=== PATIENT | female | born 1975 | race Caucasian/White ===

== ENCOUNTER 2019-12-20 09:35 | Emergency (ER) | payer OTHER, SELFPAY ==
[2019-12-20] VITALS (7 sets, daily range): BP systolic 121–137; BP diastolic 78–112; PULSE 63–78; RESP 14–20; TEMP 37; O2SAT 99–100
--- NOTE | ~2019-12-20 | CT_ITS ---
EXAMINATION: CT brain wo con INDICATION: Altered mental status, weakness, lightheadedness COMPARISON: None TECHNIQUE: Standard unenhanced head CT. The dose-length product (DLP) was 605.33 mGy-cm. The mA was a djusted according to patient size. Iterative reconstruction technique was employed. FINDINGS: There is no intracranial hemorrhage, acute infarction, or abnormal mass lesion. The ventric les are normal. There is no abnormal mass effect or midline shift. The ivy-white matter differentiat ion is normal. The basal cisterns are patent. The orbits are normal. The paranasal sinuses, mastoids and calvarium are normal. IMPRESSION: 1. No acute intracranial abnormality. Reviewed, dictated and finalized at location A.
--- NOTE | ~2019-12-20 | XR_ITS ---
EXAMINATION: XR chest 1V DATE: 12/20/2019 10:31 INDICATION: Altered mental status. TECHNIQUE: A single frontal view of the chest was obtained. COMPARISON: None. FINDINGS: The lung volumes are small. There is no pneumonia, pleural effusion, or pneumothorax. The h eart size is normal. IMPRESSION: 1. Small lung volumes. Reviewed, dictated and finalized at location A. IMPRESSION: 1. Small lung volumes.
--- NOTE | 2019-12-20 09:40 | ECG_ITS ---
Measurements Intervals [place] Rate: 78 P: 29 OK: 152 QRS: 11 QRSD: 89 T: 23 QT: 393 QTc: 449 Interpretive Statements SINUS RHYTHM INCOMPLETE RIGHT BUNDLE BRANCH BLOCK BORDERLINE ECG Electronically Signed On 12-20-2019 10:48:05 CDT by Harsh Man D.O.
--- NOTE | 2019-12-20 10:03 | ED.GENADULT ---
HPI - General Adult General Chief complaint: Weakness Stated complaint: shaking spells Time Seen by Provider: 12/20/19 09:37 History of Present Illness HPI narrative: Patient presents emergency department from home for weakness. Patient states she has been having episodes over the past month where she will feel shaky and then have a near syncopal episode. She states she is never fully passed out but she states at times she does not fully remember what happens during these events. She states that following these events she becomes very sleepy she denies having any work-up for these events she denies any vision changes chest pain shortness of breath abdominal nausea vomiting or any other symptoms. Patient denies any previous history of seizures Related Data Home Medications Medication Instructions Recorded Confirmed No Home Medications 12/20/19 12/20/19 Allergies Allergy/AdvReac Type Severity Reaction Status Date / Time No Known Allergies Allergy Verified 12/20/19 10:38 Review of Systems Review of Systems: Narrative: Gen.: Denies fevers or chills Eyes: Denies eye pain or visual change ENT: Denies congestion Respiratory: Denies shortness of breath or cough CV: Denies chest pain or palpitations reports near syncopal episode GI: Denies abdominal pain nausea, emesis or diarrhea denies burning, urgency, frequency or hematuria Musculoskeletal: Denies back pain or muscle pain Neuro: See HPI Skin: Denies rash Except as documented, all other systems reviewed and negative [facility] Past Medical History Medical History (Updated 12/20/19 @ 12:08 by Darius Louise DO) Fibromyalgia Lupus Social History Social History (Updated 12/20/19 @ 10:06 by Darius Louise DO) Smoking status: Never smoker Exam Narrative: Exam Narrative: APPEARANCE: No acute distress, nontoxic, resting in bed HEENT: Normocephalic, atraumatic, OMM, TMs clear bilaterally EYES: PERRL, EOMI NECK: Supple, nontender, full range of motion without pain, no meningismus RESPIRATORY: No respiratory distress, clear to auscultation bilaterally with no rhonchi wheezing or rales CARDIOVASCULAR: RRR s murmur ABDOMINAL: Soft, nontender, nondistended MUSCULOSKELETAL: Moves all extremities. No clubbing, cyanosis or edema. NEURO: A and O ?3, following commands, speech normal, cranial nerves II through XII grossly intact,muscle strength 5 out of 5 bilateral upper and lower extremities SKIN:: Warm, dry. Normal Color PSYCHIATRIC: Normal affect/mood Course Course Emergency Course: Discussed with Dr. Perez from neurology discussed presentation work-up agrees plan for follow-up as an outpatient with EEG as outpatient Discussed with patient results of workup and diagnosis. Discussed need for follow-up with primary care, proper use of medication, and reasons to return to the emergency department. Patient understands and agrees to current treatment plan Vital Signs Vital signs: Vital Signs Temperature 98.6 F 12/20/19 09:41 Pulse Rate 78 12/20/19 09:41 Respiratory Rate 14 12/20/19 09:41 Blood Pressure 137/88 12/20/19 09:41 Pulse Oximetry 100 12/20/19 09:41 Temperature 98.6 F 12/20/19 09:41 Pulse Rate 67 12/20/19 11:30 Respiratory Rate 16 12/20/19 11:30 Blood Pressure 121/85 12/20/19 11:30 Pulse Oximetry 99 12/20/19 11:30 Medical Decision Making MDM Narrative Medical decision making narrative: Patient's episode of near-syncope is not felt due to high risk cause. Near-syncopal episode was brief and patient is now back to normal mental status. EKG is reviewed without high-risk changes for syncope: There are no signs of prolonged QT or Brugada syndrome. Patient ambulates with a steady gait and is felt to be a reasonable candidate for further evaluation as an outpatient management. With patient's episodes of near syncopal followed by feeling sleepy mild shaking I suspect partial seizure discussed this with the patient and will have
[2019-12-20 10:07] LABS: Basophils Percent Auto 0.4 % (0.2-1.2); Eosinophils Percent Auto 0.6 % (0-4.4); Hematocrit 43.5 % (37.0-47.0); Hemoglobin 14.5 g/dL (12.0-15.0); Immature Granulocyte Absolute 0.01 K/mm3 (0.00-0.031); Immature Granulocyte Percent A 0.2 % (0-0.5); Lymphocytes Absolute Auto 1.45 K/mm3 (0.9-3.2); Lymphocytes Percent Auto 28.8 % (18.3-44.2); Mean Corpuscular HGB Conc 33.3 g/dl (32-36); Mean Corpuscular Hemoglobin 30.7 pg (26-34); Mean Platelet Volume 10.2 fl (7.4-10.4); Monocytes Absolute Auto 0.4 K/mm3 (0.1-0.6); Neutrophils Absolute Auto 3.1 K/mm3 (1.3-6.7); Platelet Count Result 230 k/mm3 (150-375); Red Blood Count 4.73 M/mm3 (4.2-5.4)
[2019-12-20 10:16] LABS: INR 0.9; Prothrombin Time 12.2 Seconds (11.1-14.7)
[2019-12-20 10:17] LABS: Partial Thromboplastin Time 29.1 SECONDS (22.3-36.8)
[2019-12-20] MEDS: SODIUM CHLORIDE 0.9% IV 1,000 ML 999 ML IV CONT (10:17)
[2019-12-20 10:19] LABS: Alanine Aminotransferase 26 U/L (4-35); Albumin Level 4.9 g/dL (3.5-5.1); Alkaline Phosphatase 93 U/L (38-126); Aspartate Amino Transferase 34 U/L (14-36); Bilirubin,Total 0.4 mg/dL (0.2-1.3); Blood Urea Nitrogen 12 mg/dL (7-17); Carbon Dioxide 27 mmol/L (22-30); Chloride 103 mmol/L (98-107); Estimated Glomerular Filt Rate > 60; Glucose 99 mg/dL (65-105); Potassium 4.1 mmol/L (3.4-5.0); Sodium 137 mmol/L (137-145)
[2019-12-20 10:31] LABS: Troponin I < 0.012 ng/mL (0.000-0.034)
[2019-12-20 11:07] LABS: Add Urine Microscopic? YES; Appearance Urine Clear (Clear); Bacteria Urine Trace /hpf; Bilirubin Urine Negative (Negative); Blood Urine Negative (Negative); Color Urine Yellow (Yellow); Glucose Urine UA Negative (Negative); Ketones Urine Negative (Negative); Leukocyte Esterase Ur Negative LEU/UL (Negative); Mucus Urine Rare /lpf; Nitrate Urine Negative (Negative); Protein Urine Negative (Negative); RBC Urine 0-2 /hpf (0-2); Squamous Epithelial Cell Urine Few /hpf (Few); Urobilinogen Urine Negative mg/dL (<2.0); WBC Urine 0-3 /hpf
[2019-12-20 11:50] LABS: D Dimer 0.27 ug/mL (<0.48)
== END 2019-12-20 12:26 | disposition home or self-care (01) ==
PROVIDERS: Emergency Provider Emergency Medicine
DX: R55 Syncope and collapse (principal); M79.7 Fibromyalgia; I45.10 Unspecified right bundle-branch block
CPT/HCPCS: 36415; 70450; 71045; 80053; 81001; 84484; 85025; 85380; 85610; 85730; 93005; 99284; J7030

== ENCOUNTER 2020-01-06 06:43 | Outpatient (CLI) | payer OTHER, SELFPAY ==
--- NOTE | 2020-01-06 | ECHO_ITS ---
Patient Info Name: Cheri Ramirez Age: 44 years : 1975 Gender: Female Ht: 59 in Wt: 170 lbs BSA: 1.83 m2 HR: 64 bpm BP: 126 / 93 mmHg Heart Rhythm: Sinus Rhythm Technical Quality: Good Exam Date: 01/06/2020 9:09 AM Exam Location: [facility] Pulmonary Patient Status: Outpatient Admit Date: 01/06/2020 Staff Ordering Physician: Giles Perez MD Proofer Apprentice: Madelyn Chicas RDCS Attending Provider: Giles Perez MD Exam Type: CA echo doppler color flow Study Info Indications - arrhythmias Complete two-dimensional, color flow and Doppler transthoracic echocardiogram is performed. Summary 1. Left ventricular systolic function is normal, estimated at >70%. 2. There is no increased left ventricular wall thickness. 3. The left ventricular diastolic function is normal. 4. No pulmonary hypertension, estimated pulmonary arterial systolic pressure is 22 mmHg. 5. There is trace tricuspid valve regurgitation. Left Ventricle Left ventricular chamber dimension is normal. Left ventricular systolic function is normal, estimated at >70%. There is no increased left ventricular wall thickness. The left ventricular diastolic function is normal. Right Ventricle Right ventricular chamber dimension is normal. Right ventricular systolic function is normal. Left Atria Left atrial chamber dimension is normal. Right Atria Right atrial chamber dimension is normal. Aortic Valve The aortic valve is probable trileaflet. There is no aortic valve stenosis. There is no aortic valve regurgitation. Pulmonic Valve The pulmonic valve is normal. There is trace pulmonic regurgitation. Mitral Valve The mitral valve has normal leaflets. There is no mitral valve regurgitation. Tricuspid Valve The tricuspid valve leaflets are normal. There is trace tricuspid valve regurgitation. No pulmonary hypertension, estimated pulmonary arterial systolic pressure is 22 mmHg. Pericardium/Pleural The pericardium appears normal. There is trivial pericardial effusion. Inferior Vena Cava Normal inferior vena cava with >50% collapse upon inspiration consistent with normal right atrial pressure, 5 mmHg. Aorta The aortic root size at the sinus of Valsalva is normal. Left Ventricular Outflow Tract Name Value Normal LVOT 2D LVOT Diameter 2.0 cm LVOT Doppler LVOT Peak Gradient 4 mmHg LVOT Mean Gradient 2 mmHg LVOT VTI 20 cm LVOT VTI/AV VTI Ratio 0.7 LVOT Stroke Volume 60 ml LVOT CO 13.1 l/min LVOT CI 7.2 l/min/m2 Pulmonic Valve Name Value Normal PV Doppler PV Peak Gradient 4 mmHg PV Regurgitation Doppler
--- NOTE | 2020-01-06 07:30 | NEURO_ITS ---
TEST: ELECTROENCEPHALOGRAM DIAGNOSIS: SEIZURE PATIENT NUMBER: [id number] EEG NUMBER: [id number] RECORDING DATE: 01/06/20 CONDITION OF RECORDING: Awake, drowsy and sleep EEG DESCRIPTION: Basic resting occipital frequency consists of moderate amount of poorly organized low voltage 8-10hz alpha mixed with low voltage 15-18hz beta. During drowsiness low voltage beta activity is seen diffusely mixed with waxing and waning posterior alpha rhythms and intermittent 6-7hz theta. Bilateral symmetrical sleep activity is seen during sleep. Photic stimulation produced normal drive. Hyperventilation produced normal and symmetrical build- up. Nonparoxysmal. Nonfocal. Nonlateralizing. IMPRESSION: Normal record MTDD
--- NOTE | 2020-01-08 16:32 | WPDHOLTEREM ---
Holter/Event Monitor Holter/Event Monitor Date of procedure: 01/08/20 Procedure Type: 24 hour Holter monitor Diagnosis: arrhythmias Indications: arrhythmias Image/Tracing Quality: good Finding: this is a 24 hour Holter monitor in which the underlying rhythm was sinus with an average heart rate of 70 beats per minute minimum 43 beats per minute occurring at 1:19 a.m. and a max of 118 beats per minute occurring at 10:39 a.m.. There were 5 isolated premature ventricular contractions noted throughout the study. There were 2 isolated premature atrial contractions noted throughout the study. There were no prolonged pauses and or high-grade AV blocks. The longest RR interval was 1.7 seconds occurring at 1:48 a.m.. OR and QRS duration were within normal limits throughout the study. There was no atrial fibrillation, atrial flutter, prolonged pauses and or high-grade AV blocks noted. There were no symptoms return to conjunction with this study. Conclusion: Unremarkable Holter monitor with underlying sinus rhythm and rare PVCs and PACs. No symptoms documented.
== END 2020-01-06 06:44 | disposition home or self-care (01) ==
PROVIDERS: Visit Provider Psychiatry & Neurology Neurology
DX: I42.9 Cardiomyopathy, unspecified (principal); R56.9 Unspecified convulsions; I49.9 Cardiac arrhythmia, unspecified
CPT/HCPCS: 93225; 93226; 93306; 95816

== ENCOUNTER 2020-12-24 11:59 | Outpatient (CLI) | payer OTHER, SELFPAY ==
--- NOTE | ~2020-12-24 | XR_ITS ---
EXAMINATION: XR fl inj hip RT for MR/CT DATE: 12/24/2020 13:00 TECHNIQUE: A time-out was performed to verify the patient's name, date of , and procedure to b e performed. The procedure including the risks, benefits, and alternatives was discussed with the pat ient. Risks discussed included bleeding and infection. The patient understood the risks and agreed to proceed. The skin overlying the right hip joint was prepped and draped in usual sterile fashion. A nesthetic was administered with 1% lidocaine subcutaneously. A 22 G needle was advanced under fluoro scopic guidance into the joint. Injection of 1 mL of Omnipaque 240 confirmed intra-articular positio n of the needle. Subsequently, injectate consisting of 12 mL of 2:1:1 mixture of sterile saline:Omni paque 240:1% lidocaine mixed 200:1 with 529 mg/mL Multihance gadolinium contrast was injected with in tra-articular administration confirmed with intermittent fluoroscopy. The needle was removed and the entry site was cleaned and dressed. There were no immediate complications. Fluoroscopy exposure time was 0.1 minutes. The total number of images was 7. FINDINGS: Real-time fluoroscopy demonstrates the needle and contrast in the right hip joint. There di d appear to be some extra-articular contrast extravasation occurring at the site of the needle entry during the course of the injection. IMPRESSION: 1. Right hip joint injection of dilute gadolinium contrast mixed for subsequent MRI arthrogram which will be dictated separately. Reviewed, dictated and finalized at location A.
--- NOTE | ~2020-12-24 | MR_ITS ---
EXAMINATION: MR hip RT w con DATE: 12/24/2020 13:50 INDICATION: Right hip pain TECHNIQUE: Magnetic resonance imaging (MRI) of the right hip was performed without intravenous contr ast. Sequences included full-field axial PD-weighted FS FSE and T1-weighted FSE, coronal of the pelvi s with PD-weighted FS FSE, small field of view of the affected hip with axial PD-weighted FS FSE, sa gittal PD-weighted FS FSE and coronal PD weighted FS FSE. Additional radial T1-weighted FGR oriented orthogonal to the acetabular rim were obtained for evaluation of the labrum. COMPARISON: None FINDINGS: Bones/labrum/cartilage: Alignment is normal. No fracture, avascular necrosis or pathologic marrow replacing process. Small c ontrast filled cleft consistent with partial thickness tear including delamination at the chondral la bral junction at the base of the 12:00-11:00 position of the posterior superior right acetabular labr um. There is mild partial-thickness cartilage loss with smooth chondral surface most prominent at the posterior and posterior superior aspect of the joint space. Fluid: Symmetric physiologic amount of fluid within both hip joints. Soft tissues: Normal and symmetric muscle bulk and signal in the pelvis and visualized proximal thighs. The iliopso as, gluteal and proximal hamstring tendons are normal. The uterus is not identified and has likely be en surgically resected. Limited evaluation of visceral organs of the pelvis is otherwise unremarkable . No pathologically enlarged pelvic/inguinal lymphadenopathy. IMPRESSION: 1. Mild right hip osteoarthritis with small tear at the 12:00 to 11:00 position of the posterior supe rior right acetabular labrum. Reviewed, dictated and finalized at location A. IMPRESSION: 1. Mild right hip osteoarthritis with small tear at the 12:00 to 11:00 position of the posterior superior right acetabular labrum.
== END 2020-12-24 12:00 ==
PROVIDERS: Visit Provider Internal Medicine
DX: M76.31 Iliotibial band syndrome, right leg (principal); M16.11 Unilateral primary osteoarthritis, right hip
CPT/HCPCS: 20610; 73722; 77002; A9577; Q9966

== ENCOUNTER 2021-01-08 08:38 | Outpatient (CLI) | payer OTHER, SELFPAY ==
--- NOTE | ~2021-01-08 | XR_ITS ---
EXAMINATION: XR lg joint inject/asp w image DATE: 01/08/2021 09:19 INDICATION: Right hip pain. TECHNIQUE: A time-out was performed to verify the patient's name, date of , and procedure to b e performed. The procedure including the risks, benefits, and alternatives was discussed with the pat ient. Risks discussed included bleeding and infection. The patient understood the risks and agreed to proceed. The skin overlying the right hip joint was prepped and draped in usual sterile fashion. A nesthetic was administered with 1% lidocaine subcutaneously. A 22 G needle was advanced under fluoro scopic guidance into the joint. Injection of 1 mL of Omnipaque 240 confirmed intra-articular positio n of the needle. Subsequently, injectate consisting of 3 mL 1% lidocaine and 1 mL 80 mg/mL Depo-Medr ol was instilled. The needle was removed and the entry site was cleaned and dressed. There were no immediate complications. Fluoroscopy exposure time was 0.1 minutes. The total number of images was 2. FINDINGS: Real-time fluoroscopy demonstrates the needle in the right hip joint. Patient's pain prior to procedure:8/10. Patient's pain following the procedure: 0/10. IMPRESSION: 1. Fluoroscopy guided right hip joint injection of local anesthetic and steroid with decrease in the patient's presenting pain. Reviewed, dictated and finalized at location A.
== END 2021-01-08 08:39 | disposition home or self-care (01) ==
LOC: ANHIMG 08:39
DX: M25.551 Pain in right hip (principal)
CPT/HCPCS: 20610; 77002; J1040; Q9966

== ENCOUNTER 2021-03-07 04:18 | Emergency (ER) | payer OTHER, SELFPAY ==
[2021-03-07 04:27] VITALS: BP 121/93; PULSE 73; RESP 20; TEMP 36.6; O2SAT 98
--- NOTE | 2021-03-07 04:41 | ED.GENADULT ---
HPI - General Adult General Chief complaint: Allergic Reaction Stated complaint: rash on her whole body Time Seen by Provider: 03/07/21 04:25 Source: RN notes reviewed History of Present Illness HPI narrative: Patient presents to emergency department from home for rash. Patient states she has had a erythematous rash across her face upper and lower extremities chest abdomen and back since March 03 states that she came in this evening because it woke her up from sleep and she was itching states has been taking Tylenol for the rash denies any swelling of the lips or tongue denies any shortness of breath. States she was recently started on lamotrigine at the end of January she denies any fevers or chills chest pain or any other symptoms Related Data Allergies Allergy/AdvReac Type Severity Reaction Status Date / Time No Known Allergies Allergy Verified 12/20/19 10:38 Review of Systems Review of Systems: Gen.: Denies fevers or chills Eyes: Denies eye pain or visual change ENT: Denies swelling of lips or tongue Respiratory: Denies shortness of breath or cough CV: Denies chest pain GI: Denies abdominal pain nausea, emesis Musculoskeletal: Denies back pain or muscle pain Neuro: Denies numbness, tingling, weakness or focal weakness Skin: See HPI Except as documented, all other systems reviewed and negative PMFSH Past Medical History Medical History Fibromyalgia Lupus Social History Social History Smoking status: Never smoker Exam Narrative: APPEARANCE: No acute distress, nontoxic, resting in bed EYES: EOMI HEENT: Normocephalic, atraumatic, OMM no swelling of the lips or tongue airway patent tolerating own secretions voice normal RESPIRATORY: No respiratory distress Clear to auscultation bilaterally with no rhonchi wheezing or rales. CARDIOVASCULAR: Regular rate and rhythm without murmurs rubs or gallops. ABDOMINAL: Soft, nontender, nondistended, no rebound or guarding MUSCULOSKELETAl: Moves all extremities. No clubbing, cyanosis or edema. NEURO: Awake and alert. Following commands, speech normal, no focal deficits SKIN:: Warm, dry. There is a erythematous rash over the bilateral upper and lower extremities chest abdomen back and face there is no open wounds there is no vesicles present there is no intraoral lesions no target lesions PSYCHIATRIC: Normal affect/mood, Course Course Emergency Course: Patient's rash is improved in the ED patient states that itching has improved Called and discussed Dr. Perez presentation work-up at this time will stop lamotrigine agrees with plan for discharge I discussed patient's minimally elevated liver enzymes as well as white blood cell count and platelets and will follow as an outpatient Discussed with patient results of workup and diagnosis. Discussed need for follow-up with primary care, proper use of medication, and reasons to return to the emergency department. Patient understands and agrees to current treatment plan Vital Signs Vital signs: Vital Signs Temperature 98 F 03/07/21 04:27 Pulse Rate 73 03/07/21 04:27 Respiratory Rate 20 03/07/21 04:27 Blood Pressure 121/93 H 03/07/21 04:27 Pulse Oximetry 98 03/07/21 04:27 Temperature 98 F 03/07/21 04:27 Pulse Rate 67 03/07/21 06:17 Respiratory Rate 16 03/07/21 06:17 Blood Pressure 121/62 03/07/21 06:17 Pulse Oximetry 100 03/07/21 06:17 Medical Decision Making [facility] Narrative Medical decision making narrative: Patient started on lamotrigine end of January presents for rash for the past 4 days. There is no target lesions there is no intraoral lesions there is no vesicles no signs of Holly-Nick syndromes or toxic epidermal necrosis. Patient did have baseline blood work done she does have minimal elevation in her liver LFTs she had minimal decrease in white blood cell count platelet count there
[2021-03-07] MEDS: FAMOTIDINE 20 MG TABLET PO (04:51)
[2021-03-07] MEDS: predniSONE 20 MG TABLET 60 MG PO (04:51)
[2021-03-07] MEDS: diphenhydrAMINE HCl CAP 25 MG CAPSULE PO (04:51)
[2021-03-07 05:27] LABS: Basophils Percent Auto 0.3 % (0.2-1.2); Eosinophils Absolute Auto 0.1 K/mm3 (0-0.3); Eosinophils Percent Auto 3.8 % (0-4.4); Hematocrit 44.6 % (37.0-47.0); Hemoglobin 14.7 g/dL (12.0-15.0); Immature Granulocyte Absolute 0.01 K/mm3 (0.00-0.031); Immature Granulocyte Percent A 0.3 % (0-0.5); Immature Platelet Fraction Pct 6.9 % (0.9-11.2); Lymphocytes Absolute Auto 0.85 K/mm3 (0.9-3.2); Lymphocytes Percent Auto 29.2 % (18.3-44.2); Mean Corpuscular Hemoglobin 31.3 pg (26-34); Mean Corpuscular Volume 94.9 fl (80-100); Mean Platelet Volume 10.2 fl (7.4-10.4); Monocytes Absolute Auto 0.2 K/mm3 (0.1-0.6); Monocytes Percent Auto 6.2 % (2.6-8.5); Neutrophils Absolute Auto 1.8 K/mm3 (1.3-6.7); Neutrophils Percent Auto 60.2 % (45.5-73.1); Platelet Count Result 140 k/mm3 (150-375); Red Cell Distribution Width 11.9 % (11.5-14.5); White Blood Count 2.9 K/mm3 (4.5-10.0)
[2021-03-07 05:36] LABS: Alanine Aminotransferase 66 U/L (4-35); Albumin Level 4.2 g/dL (3.5-5.1); Alkaline Phosphatase 106 U/L (38-126); Anion Gap 7 mmol/L (8-16); Aspartate Amino Transferase 65 U/L (14-36); Bilirubin,Total 0.3 mg/dL (0.2-1.3); Blood Urea Nitrogen 9 mg/dL (7-17); Calcium 8.5 mg/dL (8.4-10.2); Carbon Dioxide 27 mmol/L (22-30); Chloride 103 mmol/L (98-107); Estimated Glomerular Filt Rate > 60; Glucose 110 mg/dL (65-110); Sodium 137 mmol/L (137-145)
[2021-03-07 06:17] VITALS: BP 121/62; PULSE 67; RESP 16; O2SAT 100
== END 2021-03-07 06:38 | disposition home or self-care (01) ==
PROVIDERS: Emergency Provider Emergency Medicine
DX: L27.0 Generalized skin eruption due to drugs and medicaments taken internally (principal); T42.6X5A Adverse effect of other antiepileptic and sedative-hypnotic drugs, initial encounter; M79.7 Fibromyalgia
CPT/HCPCS: 36415; 80053; 85025; 85055; 99283; A9270; J7512

== ENCOUNTER 2021-07-07 09:04 | Emergency (ER) | payer OTHER, SELFPAY ==
--- NOTE | ~2021-07-07 | XR_ITS ---
EXAMINATION: XR wrist RT min 3V DATE: 07/07/2021 09:39 INDICATION: Right wrist pain. Fall. TECHNIQUE: 4 views of right wrist were obtained. COMPARISON: None. FINDINGS: Bone alignment is normal. There is a possible nondisplaced transverse fracture of the scaph oid waist. There is mild osteoarthritis of first carpometacarpal joint. IMPRESSION: 1. Possible nondisplaced transverse fracture of the scaphoid waist. Correlate for focal tenderness in the anatomic snuffbox. Reviewed, dictated and finalized at location A. [employer] IMPRESSION: 1. Possible nondisplaced transverse fracture of the scaphoid waist. Correlate f or focal tenderness in the anatomic snuffbox.
[2021-07-07 09:15] VITALS: BP 135/94; PULSE 80; RESP 16; TEMP 36.8; O2SAT 100
[2021-07-07 11:52] VITALS: BP 116/80; PULSE 96; RESP 16; TEMP 36.9; O2SAT 100
--- NOTE | 2021-07-07 13:51 | ED.GENADULT ---
HPI - General Adult General Chief complaint: Extremity Injury, Upper Stated complaint: wrist injury Time Seen by Provider: 07/07/21 09:22 Source: patient Mode of arrival: ambulatory Limitations: no limitations History of Present Illness HPI narrative: Patient is a 45-year-old female with history of lupus and MS presenting with chief complaint of pain to the right wrist after falling at the gym including her hand behind her to catch active. Patient reports pain to the right wrist. She reports no loss of sensation and motor function to the hand but pain with any palpation and ROM. Related Data Allergies Allergy/AdvReac Type Severity Reaction Status Date / Time lamotrigine [From Lamictal] Allergy Unknown Verified 07/07/21 10:35 Review of Systems Review of Systems: CONSTITUTIONAL: Denies fever, chills, or sweats. EYES: Denies visual changes, redness, or discharge. ENT: Denies rhinorrhea, congestion, sore throat, or otalgia. CARDIOVASCULAR: Denies chest pain, palpitations, or edema. RESPIRATORY: Denies cough or dyspnea. GASTROINTESTINAL: Denies abdominal pain, nausea, vomiting, or diarrhea. GENITOURINARY: Denies dysuria or hematuria. SKIN: Denies rash or itching. MUSCULOSKELETAL: Reports right wrist pain Denies back pain, myalgia, or joint pain NEUROLOGIC: Denies headache, numbness, dizziness, or weakness. PSYCHIATRIC: Denies anxiety or depression. [facility] Past Medical History Medical History Fibromyalgia Lupus Social History Social History Smoking status: Never smoker Exam Narrative: GENERAL: Well-appearing, well-nourished. HEAD: Normocephalic, atraumatic. EYES: PERRLA and EOMI. CHEST: Clear to auscultation. No respiratory distress. No wheezes rales or rhonchi HEART: Regular rate and rhythm. EXTREMITIES: Cap refill intact. Wrist exam extremely limited as patient refuses ROM exercises active or passive and very minimal palpation. Reports pain to the entire wrist, worse to radial aspect. SKIN: Warm, dry, no rash. NEURO: No focal deficits. Alert and oriented x3. PSYCH: Normal mood and affect. Course Vital Signs Vital signs: Vital Signs Temperature 98.2 F 07/07/21 09:15 Pulse Rate 80 07/07/21 09:15 Respiratory Rate 16 07/07/21 09:15 Blood Pressure 135/94 H 07/07/21 09:15 Pulse Oximetry 100 07/07/21 09:15 Temperature 98.5 F 07/07/21 11:52 Pulse Rate 96 07/07/21 11:52 Respiratory Rate 16 07/07/21 11:52 Blood Pressure 116/80 07/07/21 11:52 Pulse Oximetry 100 07/07/21 11:52 Procedures Orthopedic Splinting/Casting Injury #1: Side: right Upper Extremity Injury Location: wrist Splint: customized in ED OCL: short arm Pre-Procedure Neuro Vascular Exam: normal Post-Procedure Neuro Vascular Exam: normal Additional Comments: Patient declined sling Medical Decision Making MDM Narrative Medical decision making narrative: X-ray showed possible ulnar styloid fracture. Patient is very noncompliant with palpation and in full examination of the right wrist-reports pain to the anatomical snuffbox but reports pain to entire wrist, so I am not sure how sensitive palpation of this area is in determining fracture. patient placed in volar splint encouraged to RICE and follow-up origination specialist for further evaluation. Differential Diagnosis Differential Diagnosis: Fracture, sprain, strain Vital Signs Vital Signs: Vital Signs Temperature 98.2 F 07/07/21 09:15 Pulse Rate 80 07/07/21 09:15 Respiratory Rate 16 07/07/21 09:15 Blood Pressure 135/94 H 07/07/21 09:15 Pulse Oximetry 100 07/07/21 09:15 Temperature 98.5 F 07/07/21 11:52 Pulse Rate 96 07/07/21 11:52 Respiratory Rate 16 07/07/21 11:52 Blood Pressure 116/80 07/07/21 11:52 Pulse Oximetry 100 07/07/21 11:52 Imaging Data Radiologist's im
== END 2021-07-07 11:53 | disposition home or self-care (01) ==
PROVIDERS: Emergency Provider Emergency Medicine; PCP Registered Nurse
DX: S62.001A Unspecified fracture of navicular [scaphoid] bone of right wrist, initial encounter for closed fracture (principal); W19.XXXA Unspecified fall, initial encounter; G35 Multiple sclerosis
CPT/HCPCS: 29125; 73110; 99284